=== PATIENT | female | born 1970 | race Caucasian/White ===

== ENCOUNTER → 2017-06-03 | Outpatient (CLI) | payer SELFPAY ==
[~2017-06-03] MED LIST: FLUTICASONE PR50 MCG; PRENTAB26 PO
== END | disposition home or self-care (01) ==
LOC: C.PAPS 12:46
PROVIDERS: ATTEND Obstetrics & Gynecology
DX: Z12.4 Encounter for screening for malignant neoplasm of cervix (principal)